=== PATIENT | male | born 1990 | race African-American/Black ===

== ENCOUNTER 2019-08-22 21:27 | Emergency (ER) | payer SELFPAY ==
[~2019-08-22] VITALS: Ht 172.7 cm; Wt 114.0 kg
[2019-08-22] MEDS ORDERED: MAGNESIUM/ALUMINUM HYDROXIDE/SIMETHICONE 30ML UDC PO ONE (23:00)
[2019-08-22] MEDS ORDERED: FAMOTIDINE 20MG TABLET PO ONE (23:00)
[2019-08-22 23:43] LABS: BASOPHILS % 1.2 % (0.0-2.0); EOSINOPHILS % 1.6 % (0.0-5.0); HEMATOCRIT. 49.6 % (42.0-52.0); HEMOGLOBIN. 16.5 g/dL (14.0-18.0); MEAN CORPUSCULAR HEMOGLOBIN 29.7 pg (28.0-32.0); MEAN CORPUSCULAR VOLUME 89.5 fL (80.0-94.0); MEAN PLATELET VOLUME 8.5 fl (7.4-10.4); MONOCYTES % 9.7 % (2.0-8.0); NEUTROPHILS % 53.5 % (40.0-76.0); PLATELET 171 x1000/uL (130-400); RED BLOOD CELL COUNT 5.55 mill/uL (4.7-6.1); RED CELL DISTRIBUTION WIDTH 15.1 % (11.6-14.6)
[2019-08-22 23:47] LABS: CHLORIDE 104 mEq/L (98-107)
[2019-08-22 23:52] LABS: ETHANOL BLOOD < 10 mg/dL
[2019-08-23 00:21] LABS: PHENCYCLIDINE URINE SCREEN NEGATIVE (NEGATIVE)
[2019-08-23 00:22] LABS: *AMPHETAMINES SCREEN URINE NEGATIVE (NEGATIVE); *BARBITURATES SCREEN URINE NEGATIVE (NEGATIVE); *BENZODIAZEPINES SCREEN URINE NEGATIVE (NEGATIVE); *COCAINE SCREEN URINE NEGATIVE (NEGATIVE); CANNABINOID URINE SCREEN PRESUMTIVE POSITIVE (NEGATIVE); METHADONE URINE SCREEN NEGATIVE (NEGATIVE); OPIATES URINE SCREEN NEGATIVE (NEGATIVE)
[2019-08-23] MEDS ORDERED: IBUPROFEN 800MG TABLET PO ONE (00:45)
[2019-08-23 01:21] VITALS: BP 132/72
== END 2019-08-23 01:24 | disposition home or self-care (01) ==
LOC: ER 21:27
DX: R07.89 Other chest pain (principal); K21.9 Gastro-esophageal reflux disease without esophagitis; R68.84 Jaw pain; K01.1 Impacted teeth; E11.9 Type 2 diabetes mellitus without complications; F17.210 Nicotine dependence, cigarettes, uncomplicated; F12.10 Cannabis abuse, uncomplicated; Z71.6 Tobacco abuse counseling
CPT/HCPCS: 36415; 71045; 80053; 80305; 80320; 83690; 83880; 84484; 85025; 93005; 99284; 99406; Z7610; G0480

== ENCOUNTER 2019-11-22 09:25 | Emergency (ER) | payer MEDICAID ==
[~2019-11-22] VITALS: Ht 172.7 cm; Wt 99.0 kg
[2019-11-22] MEDS ORDERED: ONDANSETRON 4MG ODT PO ONE (11:45)
[2019-11-22] MEDS ORDERED: IBUPROFEN 600MG TABLET PO ONE (11:45)
[2019-11-22 12:04] VITALS: BP 126/81
== END 2019-11-22 12:58 | disposition home or self-care (01) ==
LOC: ER 09:25
DX: J06.9 Acute upper respiratory infection, unspecified (principal); E11.9 Type 2 diabetes mellitus without complications; F12.10 Cannabis abuse, uncomplicated
CPT/HCPCS: 87070; 87430; 87804; 99283; Q0162